=== PATIENT | female | born 1955 | race Caucasian/White ===

== ENCOUNTER 2018-06-28 22:41 | Emergency (ER) | END 2018-06-29 06:03 | disposition home or self-care (01) ==

== ENCOUNTER 2019-04-03 06:43 | Day surgery (SDC) | payer OTHER ==
[~2019-04-03] VITALS: Ht 157.5 cm; Wt 78.3 kg
[~2019-04-03 06:43] MED LIST: CYCL10TA7 PO; METF500T24 PO; NAPR-985 PO; TELM40TA3 PO
[2019-04-03] MEDS ORDERED: ATORVASTATIN (07:52)
[2019-04-03 07:59] VITALS: Ht 157.5 cm; Wt 78.3 kg
[2019-04-03 08:02] VITALS: BP 169/79; PULSE 73; RESP 16
--- NOTE | 2019-04-03 08:08 | PREAC ---
Date/Time of Note Date/Time of Note DATE: 04/03/19 TIME: 08:07 Anesthesia Eval and Record Evaluation Time Pre-Procedure Interview DATE: 04/03/19 TIME: 08:07 Age 63 Sex female NPO: 8 hrs Preoperative diagnosis Other Fecal Abn. Planned procedure EGD, & Colonoscopy Past Medical History Past Medical History: Includes Cardio: HTN, Dyslipidemia Endo: Diabetes GI: GERD Surgery & Anesthesia Issues No known issue Meds Anticoagulation: No Beta Disha within 24 hr: No Reason Beta Disha not given: Pt. not on B-Disha Reported Medications [Atorvastatin] No Conflict Check 04/03/19 Telmisartan (Telmisartan) 40 Mg Tablet, 40 MG PO DAILY, TAB 06/29/18 Metformin Hcl* (Metformin Hcl*) 500 Mg Tablet, 500 MG PO WITH BREAKFAST DINNE, #30 TAB 06/01/16 Discontinued Scripts Naproxen* (Naprosyn*) 500 Mg Tablet, 500 MG PO BID PRN for PAIN AND/OR INFLAMMATION, #30 TAB Prov:SHAKIR ROGER 06/29/18 Cyclobenzaprine Hcl* (Cyclobenzaprine Hcl*) 10 Mg Tablet, 10 MG PO TID, #15 TAB Prov:SHAKIR ROGER 06/29/18 Meds reviewed: Yes Allergies Coded Allergies: Influenza Virus Vaccines (Verified Adverse Reaction, Unknown, 04/03/19) PER PATIENT: HIGH FEVERS Allergies Reviewed: Yes Labs/Studies Labs Reviewed: Reviewed by anesthesiologist test: N/A Studies: ECG (n/a), CXR (n/a) Pre-procedure Exam Last vitals Vital Signs Date Temp Pulse Resp B/P (MAP) Pulse Ox O2 O2 Flow FiO2 Time Delivery Rate 04/03/19 98.0 73 16 169/79 97 Room Air 08:02 (109) Airway: Adequate mouth opening, Adequate thyromental dist Mallampati: Mallampati II Teeth: Normal Lung: Normal Heart: Normal ASA Physical Status ASA physical status: 3 Emergency: None Planned Anesthetic General/MAC: MAC Planned Pain Management Parenteral pain med Pre-operative Attestations Prior to commencing anesthesia and surgery, the patient was re-evaluated, there was verification of: *The patient's identity *The results of appropriate recent lab work and preoperative vital signs *The above evaluation not changing prior to induction *Anesthetic plan, risk benefits, alternative and complications discussed with patient/family; questions answered; patient/family understands, accepts and wishes to proceed. NO JOLLY MD Apr 03, 2019 08:08
--- NOTE | 2019-04-03 08:40 | PAC ---
Date/Time of Note Date/Time of Note DATE: 04/03/19 TIME: 08:39 Post-Anesthesia Notes Post-Anesthesia Note Last documented vital signs Vital Signs Date Temp Pulse Resp B/P (MAP) Pulse Ox O2 O2 Flow FiO2 Time Delivery Rate 04/03/19 98.0 73 16 169/79 97 Room Air 08:02 (109) Activity: WNL Respiratory function: WNL Cardiovascular function: WNL Mental status: Baseline Pain reasonably controlled: Yes Hydration appropriate: Yes Nausea/Vomiting absent: Yes NO JOLLY MD Apr 03, 2019 08:40
[2019-04-03] MEDS ORDERED: PROPOFOL 60 ML ONE (08:50)
[2019-04-03 09:13] VITALS: BP 122/67; RESP 17
== END 2019-04-03 10:17 | disposition home or self-care (01) ==
LOC: GIL 06:43
PROVIDERS: ATTEND Internal Medicine Gastroenterology
DX: R19.5 Other fecal abnormalities (principal); K29.50 Unspecified chronic gastritis without bleeding; D12.4 Benign neoplasm of descending colon; K57.30 Diverticulosis of large intestine without perforation or abscess without bleeding; I10 Essential (primary) hypertension; E11.9 Type 2 diabetes mellitus without complications; E78.5 Hyperlipidemia, unspecified
CPT/HCPCS: 43239; 45380; 82962; 88305; 88312; Z7610; 88313